=== PATIENT | female | born 1950 | race Caucasian/White ===

== ENCOUNTER → 2017-03-18 | Outpatient (CLI) | payer BC ==
--- NOTE | 2017-03-18 10:54 | REPMRS ---
Patient History The patient states she had a clinical breast exam in Family history of breast cancer in maternal cousin at age 50 or over. Benign lumpectomy of the right breast, 1981. Digital Woman Screen Mammo: March 18, 2017 - Exam #: [id number] Bilateral CC and MLO view(s) were taken. Technologist: Gaby Verma, Technologist Prior study comparison: April 02, 2015, right breast digital mammo diagnostic unilateral, performed at [facility]. June 04, 2014, digital woman screen mammo performed at [facility]. June 02, 2013, digital woman screen mammo performed at [facility]. FINDINGS: There are scattered fibroglandular densities. There has been no change in the appearance of the mammogram from the prior studies. There is a mild amount of scattered fibroglandular density which is fairly symmetric. There is no interval development of dominant mass, architectural distortion, or clustered microcalcification suggestive of malignancy. ASSESSMENT: BI-RADS/ACR category 1 mammogram. Negative. Recommendation Routine screening mammogram in 1 year (for women over age 40). This mammogram was interpreted with the aid of an FDA-approved computer-aided dectection system. Electronically Signed By: Wesly Bates MD 03/18/17 [id number]
== END ==
LOC: M WHC 08:43
PROVIDERS: ATTEND Nurse Practitioner Family
DX: Z12.31 Encounter for screening mammogram for malignant neoplasm of breast (principal)

== ENCOUNTER → 2018-03-18 | Outpatient (CLI) | payer BC, MEDICARE | LOC: M WHC 09:42 | DX: Z12.31 Encounter for screening mammogram for malignant neoplasm of breast (principal); Z92.89 Personal history of other medical treatment | CPT/HCPCS: 77067 ==

== ENCOUNTER → 2019-03-20 | Outpatient (CLI) | payer BC, MEDICARE ==
--- NOTE | 2019-03-20 10:02 | REPMRS ---
Patient History The patient states she had a clinical breast exam in 03/2019. Family history of breast cancer under age 50 in maternal cousin. Benign lumpectomy of the right breast, 1982. 3D TOMOSYNTHESIS WAS PERFORMED. The [facility] lifetime risk for breast cancer is 6.5%. Digital Woman Screen Mammo: March 20, 2019 - Exam #: [id number] Bilateral CC and MLO view(s) were taken. Technologist: Thu Castro, Technologist Prior study comparison: March 18, 2018, bilateral digital woman screen mammo performed at [facility]. March 18, 2017, digital woman screen mammo performed at [facility] [employer] [facility]. FINDINGS: There are scattered fibroglandular densities. There has been no change in the appearance of the mammogram from the prior studies. There is a mild amount of residual fibroglandular tissue which is fairly symmetric. There is no interval development of dominant mass, architectural distortion, or clustered microcalcification suggestive of malignancy. Assessment: BI-RADS/ACR category 1 mammogram. Negative Mammogram. Recommendation Routine screening mammogram in 1 year (for women over age 40). This mammogram was interpreted with the aid of an FDA-approved computer-aided dectection system. Electronically Signed By: Naseem Nuñez MD 03/20/19 1002
== END ==
LOC: M WHC 07:59
PROVIDERS: ATTEND Nurse Practitioner Family
DX: Z12.31 Encounter for screening mammogram for malignant neoplasm of breast (principal)

== ENCOUNTER → 2020-03-21 | Outpatient (CLI) | payer BC, MEDICARE ==
--- NOTE | 2020-03-21 09:40 | REPMRS ---
Patient History The patient states she had a clinical breast exam in March 2020. Family history of breast cancer under age 50 in maternal cousin. Benign lumpectomy of the right breast, 1982. 3D TOMOSYNTHESIS WAS PERFORMED. [facility] for [facility] cancer is 6.2%. VOLREDA NEYDA B. Digital Woman Screen Mammo: March 21, 2020 - Exam #: [id number] Bilateral CC and MLO view(s) were taken. Technologist: Ashleigh Pope, Technologist Prior study comparison: March 20, 2019, bilateral digital woman screen mammo performed at [facility]. March 18, 2018, bilateral digital woman screen mammo performed at [facility]. FINDINGS: The breast tissue is heterogeneously dense. This may lower the sensitivity of mammography. There has been no change in the appearance of the mammogram from the prior studies. There is a moderate amount of residual fibroglandular tissue which is fairly symmetric. There is no interval development of dominant mass, areas of architectural distortion, or clustered microcalcification typical of malignancy. Assessment: BI-RADS/ACR category 1 mammogram. Negative Mammogram. Recommendation Routine screening mammogram in 1 year (for women over age 40). This mammogram was interpreted with the aid of an FDA-approved computer-aided dectection system. Electronically Signed By: Naseem Nuñez MD 03/21/20 0939
== END ==
LOC: M WHC 08:12
PROVIDERS: ATTEND Nurse Practitioner Family
DX: Z12.31 Encounter for screening mammogram for malignant neoplasm of breast (principal); Z86.018 Personal history of other benign neoplasm

== ENCOUNTER → 2021-03-26 | Outpatient (CLI) | payer BC, MEDICARE ==
--- NOTE | 2021-03-26 09:49 | REP ---
INDICATION: JANETH SCR MAMMO Z12.31. COMPARISON: Multiple TECHNIQUE: Digital screening mammography was carried out bilaterally in the CC and MLO projections using both 2D and 3D modalities and compared to the prior exams. By history, the patient has no complaints of a palpable breast abnormality or other significant breast complaints. FINDINGS: The breasts are unchanged in size and shape. Once again, dense heterogenous fibroglandular elements are seen bilaterally. In the upper outer quadrant of the right breast there is a potential small subtle kishan density. No other suspicious features are seen in either breast. The Volpara volumetric breast density pattern is b. IMPRESSION: BIRADS/ACR category 0 mammogram. There is a subtle potential kishan density in the upper outer quadrant of the right breast and for which diagnostic digital magnified spot compression views are recommended in the CC and MLO projections. The spot compression view should be obtained using DBT technique. This patient's Tyrer-Cuzick lifetime breast cancer risk assessment score is 5.8%. This mammogram was interpreted with the aid of an FDA-approved computer-aided detection system. The patient states she had a clinical breast exam in March 2021. The patient letter being requested is M0 RECOMMENDATION: As above <Electronically signed by Neil Cm > 03/26/21 0994
== END ==
LOC: M WHC 08:17
PROVIDERS: ATTEND Nurse Practitioner Women's Health
DX: Z12.31 Encounter for screening mammogram for malignant neoplasm of breast (principal); R92.2 Inconclusive mammogram

== ENCOUNTER → 2021-04-03 | Outpatient (CLI) | payer BC, MEDICARE ==
--- NOTE | 2021-04-03 14:31 | REP ---
INDICATION: ADDITIONAL VIEWS RT BREAST. Screening mammography from March 26, 2021 was BI-RADS category 0 because of a possible 4 mm kishan density in the upper-outer quadrant of the right breast. COMPARISON: Comparison is also made with a prior mammography March of 2020 and March of 2019. TECHNIQUE: Magnified focal spot-compression CC mL and MLO views were obtained. 3D tomography in the mL projection is carried out. Focal spot compression DBT images are acquired as recommended in the CC and MLO projection as well. This mammogram was interpreted with the aid of an FDA-approved computer-aided detection system. FINDINGS: Scattered fibroglandular elements are again noted. No nodular kishan density is identified on diagnostic magnified or un magnified DBT spot images. No kishan density is seen. 3D tomography images show no additional abnormality. The Volpara volumetric breast density pattern is b. IMPRESSION: BIRADS/ACR category 1 negative mammographic findings. RECOMMENDATION: Repeat screening mammography recommended 1 year (for women over 40). The patient letter being requested is M1. <Electronically signed by Wesly Bates > 04/03/21 3509
== END ==
LOC: M WHC 13:33
PROVIDERS: ATTEND Nurse Practitioner Women's Health
DX: R92.8 Other abnormal and inconclusive findings on diagnostic imaging of breast (principal)

== ENCOUNTER 2024-08-21 08:47 | Day surgery (SDC) | payer MEDICARE, BC ==
[~2024-08-21] VITALS: Ht 160 cm; Wt 83.1 kg
[~2024-08-21 08:47] MED LIST: AMLO2.5C6 PO; EZET10TA21 PO; FLUO-365 PO; FLUO40CA PO; FLUT1BLS6 INH; FURO40TA2 PO; ICOS1CAP PO; JANU100T PO; JARD1TAB PO; LANS30CA93 PO; LATANOPROST OU; LEVO88TA3 PO; LIVA4TAB PO; METF-838 PO; MONT10TA97 PO; POTA1TAB23 PO; PREG150C2 PO; PROA1AER2 INH; SPIR1CAP INH; SYST0.4D2 OP; TIMO1DRO5 OU; VITA100066 PO; XARE20TA PO
[2024-08-21] MEDS ORDERED: LIDOCAINE 2% 100MG/5ML SDV (FOR ANES.) As Ordered ONE (12:14)
[2024-08-21] MEDS ORDERED: propofoL 200 MG/20 ML VIAL As Ordered ONE (12:14)
[2024-08-21 12:57] VITALS: TEMP 96.9
[2024-08-21 13:25] VITALS: BP 116/59; O2SAT 95
== END 2024-08-21 13:25 | disposition home or self-care (01) ==
LOC: M OPP 08:47
PROVIDERS: ATTEND Internal Medicine Gastroenterology
DX: Z12.11 Encounter for screening for malignant neoplasm of colon (principal); Z12.12 Encounter for screening for malignant neoplasm of rectum; K44.9 Diaphragmatic hernia without obstruction or gangrene; K64.0 First degree hemorrhoids; K57.30 Diverticulosis of large intestine without perforation or abscess without bleeding; R12 Heartburn; I10 Essential (primary) hypertension; E11.9 Type 2 diabetes mellitus without complications; E78.00 Pure hypercholesterolemia, unspecified; E03.9 Hypothyroidism, unspecified; J44.9 Chronic obstructive pulmonary disease, unspecified; Z79.01 Long term (current) use of anticoagulants; Z79.899 Other long term (current) drug therapy; Z79.84 Long term (current) use of oral hypoglycemic drugs; Z79.890 Hormone replacement therapy; G47.30 Sleep apnea, unspecified; F17.210 Nicotine dependence, cigarettes, uncomplicated; Z90.710 Acquired absence of both cervix and uterus; Z88.8 Allergy status to other drugs, medicaments and biological substances; Z91.030 Bee allergy status
CPT/HCPCS: 43239; 88305; G0121